=== PATIENT | male | born 1990 | race Caucasian/White ===

== ENCOUNTER 2018-05-07 09:17 | Inpatient (IN) | payer MEDICAID, OTHER ==
[~2018-05-07] VITALS: Ht 177.8 cm; Wt 70.0 kg
[~2018-05-07 09:17] MED LIST: FLO0.4C PO; HYDR-3965 PO
[2018-05-07 10:35] LABS: BASOPHILS % (AUTO) 0.5 % (0-1); EOSINOPHILS # (AUTO) 0.3 X10'3 (0-0.9); EOSINOPHILS % (AUTO) 6.8 % (0-6); HEMOGLOBIN 15.2 g/dl (14.0-17.9); LYMPHOCYTES % (AUTO) 26.4 % (21-51); MEAN CORPUSCULAR HEMOGLOBIN 31.2 PG (27.0-31.0); MEAN CORPUSCULAR HGB CONC 34.5 % (33.0-36.5); MEAN CORPUSCULAR VOLUME 90.6 FL (78-98); MEAN PLATELET VOLUME 7.8 FL (7.4-10.4); MONOCYTES # (AUTO) 0.3 X10'3 (0-0.9); MONOCYTES % (AUTO) 7.9 % (2-12); NEUTROPHILS # (AUTO) 2.3 X10'3 (1.8-7.7); NEUTROPHILS % (AUTO) 58.4 % (42-75); PLATELET COUNT 290 X10'3 (140-440); RED BLOOD COUNT 4.86 X10'6 (4.70-6.10); RED CELL DISTRIBUTION WIDTH 12.9 % (11.5-14.5); WHITE BLOOD COUNT 3.9 X10'3 (4.5-11.0)
[2018-05-07 10:49] LABS: ALANINE AMINOTRANSFERASE 44 U/L (12-78); ALBUMIN 4.3 G/DL (3.4-5.0); ALBUMIN/GLOBULIN RATIO 1.3 (1.1-1.5); ALKALINE PHOSPHATASE 50 IU/L (46-116); ANION GAP 8 (8-16); ASPARTATE AMINO TRANSFERASE 19 U/L (10-37); BILIRUBIN,TOTAL 0.6 MG/DL (0.1-1.0); BLOOD UREA NITROGEN 18 MG/DL (7-18); BUN/CREATININE RATIO 17.6 (5.4-32.0); CHLORIDE 105 MMOL/L (99-107); CREATININE 1.02 MG/DL (0.60-1.10); GLUCOSE 89 MG/DL (70-104); POTASSIUM 4.1 MMOL/L (3.5-5.1); SODIUM 140 MMOL/L (135-145); TOTAL CARBON DIOXIDE 26.8 MMOL/L (24-32); TOTAL PROTEIN 7.6 G/DL (6.4-8.2); eGFR 86 ML/MIN
[2018-05-07 11:59] LABS: CLARITY,URINE CLEAR (Clear); COLOR,URINE YELLOW (Yellow); GLUCOSE, URINE NEGATIVE (Neg); KETONES,URINE NEGATIVE (Neg); LEUKOCYTE ESTERASE ,URINE NEGATIVE (Neg); NITRITES, URINE NEGATIVE (Neg); OCCULT BLOOD,URINE NEGATIVE (Neg); PROTEIN,URINE NEGATIVE (Neg); UROBILINOGEN,URINE 0.2 E.U/dL (0.2-1.0)
[2018-05-07 12:02] LABS: UA COLLECTION TYPE CLN CATCH MIDSTREAM
[2018-05-07] MEDS ORDERED: HYDROcodone/acetaminophen 5mg/325mg tablet PO ONE (12:05)
[2018-05-07] MEDS ORDERED: normal saline 1000ML IV soln IV ONE (12:05)
[2018-05-07] MEDS ORDERED: HYDROcodone/acetaminophen 5mg/325mg tablet PO PRN (12:50)
[2018-05-07] MEDS ORDERED: morphine 2 MG/ML inj. syringe IV PRN (12:50)
[2018-05-07] MEDS ORDERED: ondansetron/PF 4mg/2ml inj IV PRN (12:50)
[2018-05-07] MEDS ORDERED: iohexol 300mg/ml 100ml inj. ONE (13:11)
[2018-05-07] MEDS: morphine 2 MG/ML inj. syringe IV PRN ×2 (16:39→21:04)
[2018-05-07 17:00] VITALS: BP 129/80
[2018-05-07] MEDS: HYDROcodone/acetaminophen 10/325mg tab PO PRN (19:04)
[2018-05-07 20:00] VITALS: BP 120/82
[2018-05-08] VITALS (19 sets, daily range): BP systolic 100–143; BP diastolic 55–98
[2018-05-08] MEDS: normal saline 1000ml 1,000 ML IV SCH ×3 (00:06→20:00)
[2018-05-08] MEDS: morphine 2 MG/ML inj. syringe IV PRN (04:41)
[2018-05-08 06:24] LABS: BASOPHILS % (AUTO) 0.7 % (0-1); EOSINOPHILS # (AUTO) 0.4 X10'3 (0-0.9); EOSINOPHILS % (AUTO) 7.8 % (0-6); HEMOGLOBIN 13.2 g/dl (14.0-17.9); LYMPHOCYTES # (AUTO) 1.7 X10'3 (1.1-4.8); LYMPHOCYTES % (AUTO) 37.5 % (21-51); MEAN CORPUSCULAR VOLUME 91.2 FL (78-98); MEAN PLATELET VOLUME 8.2 FL (7.4-10.4); MONOCYTES # (AUTO) 0.4 X10'3 (0-0.9); MONOCYTES % (AUTO) 8.2 % (2-12); NEUTROPHILS # (AUTO) 2.1 X10'3 (1.8-7.7); NEUTROPHILS % (AUTO) 45.8 % (42-75); PLATELET COUNT 240 X10'3 (140-440); RED BLOOD COUNT 4.28 X10'6 (4.70-6.10); RED CELL DISTRIBUTION WIDTH 12.6 % (11.5-14.5); WHITE BLOOD COUNT 4.6 X10'3 (4.5-11.0)
[2018-05-08 06:40] LABS: ALBUMIN 3.4 G/DL (3.4-5.0); ANION GAP 8 (8-16); BLOOD UREA NITROGEN 16 MG/DL (7-18); BUN/CREATININE RATIO 16.7 (5.4-32.0); CALCIUM 8.5 MG/DL (8.5-10.1); CHLORIDE 108 MMOL/L (99-107); CREATININE 0.96 MG/DL (0.60-1.10); GLUCOSE 87 MG/DL (70-104); INR 1.1 INR; PARTIAL THROMBOPLASTIN TIME 28 SECONDS (22-32); POTASSIUM 4.1 MMOL/L (3.5-5.1); PROTHROMBIN TIME 10.7 SECONDS (9.0-12.0); SODIUM 140 MMOL/L (135-145); TOTAL CARBON DIOXIDE 23.7 MMOL/L (24-32); eGFR > 90 ML/MIN
[2018-05-08] MEDS: HYDROcodone/acetaminophen 10/325mg tab PO PRN ×4 (07:50→23:57)
[2018-05-08] MEDS ORDERED: iohexol 300 MG/1 ML 10ml vial ONE (15:50)
[2018-05-08] MEDS ORDERED: sevoflurane 250ml liquid IH ONE (15:51)
[2018-05-08] MEDS ORDERED: propofol inj 20 ML IV ONE (15:56)
[2018-05-08] MEDS ORDERED: fentaNYL/PF 50MCG/1 ML 2ML syringe ONE (15:56)
[2018-05-08] MEDS ORDERED: midazolam 2 mg/2 ml injection ONE (15:56)
[2018-05-08] MEDS ORDERED: morphine 4 MG/ML inj SYRINge IV PRN ×2 (16:25)
[2018-05-08] MEDS ORDERED: proCHLORperazine 10 MG/2 ml inj IV PRN (16:25)
[2018-05-08] MEDS ORDERED: ringers solution, lacted 1,000 ML IV SCH (16:25)
[2018-05-08] MEDS ORDERED: ondansetron/PF 4mg/2ml inj IV PRN (16:25)
[2018-05-08] MEDS ORDERED: meperidine/PF 25mg/ml syringe IV PRN ×3 (16:25)
[2018-05-08] MEDS ORDERED: tamsulosin 0.4mg capsule PO SCH (21:00)
[2018-05-09] VITALS: BP 116/64
[2018-05-09] MEDS: normal saline 1000ml 1,000 ML IV SCH ×2 (03:12→16:00)
[2018-05-09] MEDS: HYDROcodone/acetaminophen 10/325mg tab PO PRN ×4 (05:57→18:22)
[2018-05-09 06:23] LABS: BASOPHILS % (AUTO) 0.4 % (0-1); EOSINOPHILS # (AUTO) 0.3 X10'3 (0-0.9); EOSINOPHILS % (AUTO) 6.7 % (0-6); HEMATOCRIT 38.2 % (42.0-52.0); LYMPHOCYTES # (AUTO) 1.2 X10'3 (1.1-4.8); LYMPHOCYTES % (AUTO) 24.9 % (21-51); MEAN CORPUSCULAR HEMOGLOBIN 31.3 PG (27.0-31.0); MEAN CORPUSCULAR VOLUME 91.9 FL (78-98); MEAN PLATELET VOLUME 7.8 FL (7.4-10.4); MONOCYTES # (AUTO) 0.4 X10'3 (0-0.9); MONOCYTES % (AUTO) 7.6 % (2-12); NEUTROPHILS # (AUTO) 2.9 X10'3 (1.8-7.7); NEUTROPHILS % (AUTO) 60.4 % (42-75); PLATELET COUNT 240 X10'3 (140-440); RED BLOOD COUNT 4.16 X10'6 (4.70-6.10); RED CELL DISTRIBUTION WIDTH 13.4 % (11.5-14.5); WHITE BLOOD COUNT 4.8 X10'3 (4.5-11.0)
[2018-05-09 06:53] LABS: ALBUMIN 3.3 G/DL (3.4-5.0); ANION GAP 6 (8-16); BLOOD UREA NITROGEN 13 MG/DL (7-18); BUN/CREATININE RATIO 11.3 (5.4-32.0); CALCIUM 8.4 MG/DL (8.5-10.1); CHLORIDE 108 MMOL/L (99-107); CREATININE 1.15 MG/DL (0.60-1.10); GLUCOSE 87 MG/DL (70-104); POTASSIUM 4.1 MMOL/L (3.5-5.1); SODIUM 143 MMOL/L (135-145); TOTAL CARBON DIOXIDE 29.3 MMOL/L (24-32); eGFR 75 ML/MIN
[2018-05-09 08:00] VITALS: BP 100/71
[2018-05-09] MEDS ORDERED: tamsulosin 0.4mg capsule PO SCH (09:50)
[2018-05-09 12:00] VITALS: BP 119/70
[2018-05-09] MEDS ORDERED: FLO0.4C PO (18:46)
[2018-05-09] MEDS ORDERED: SULF1TAB49 PO (18:47)
[2018-05-09 19:00] VITALS: BP 122/64
== END 2018-05-09 19:30 | disposition home or self-care (01) | DRG 465 ==
LOC: ER 09:18 → ED HOLD 12:49 → EDBEDREQ 14:04 → SUR 3N 16:50 → PACU 05-08 15:44 → SUR 3N 05-08 18:00
PROVIDERS: ADMIT Internal Medicine; ATTEND Urology
PROC: BW211ZZ Computerized Tomography (CT Scan) of Abdomen and Pelvis using Low Osmolar Contrast (ICD-10-PCS; 2018-05-07)
PROC: BT1F1ZZ Fluoroscopy of Left Kidney, Ureter and Bladder using Low Osmolar Contrast (ICD-10-PCS; 2018-05-08)
PROC: 0T778DZ Dilation of Left Ureter with Intraluminal Device, Via Natural or Artificial Opening Endoscopic (ICD-10-PCS; principal; 2018-05-08 15:51)
DX: N13.0 Hydronephrosis with ureteropelvic junction obstruction (principal)
CPT/HCPCS: 36415; 74176; 74177; 74420; 76000; 80048; 80053; 81003; 85025; 85610; 85730; 87070; 99285; A4402; C1758; C1769; C2617; G0378; J2250; J2270; J2704; J3010; J7030; J7120; Q9967